=== PATIENT | female | born 1960 | race Caucasian/White ===

== ENCOUNTER 2016-12-22 08:12 | Emergency (ER) | payer OTHER ==
[~2016-12-22] VITALS: Ht 162.6 cm; Wt 86.4 kg
[2016-12-22 08:15] VITALS: TEMP 98.7
[2016-12-22] MEDS ORDERED: SYNTHROID0.125 MG/T PO (08:18)
[2016-12-22] MEDS ORDERED: ZOLOFT 50MG50 MG PO (08:18)
[2016-12-22] MEDS ORDERED: PRINIVIL5 MG (08:18)
[2016-12-22 09:01] LABS: BASO # 0.1 (0.0-0.2); BASO % 0.3 % (0.0-2.0); EOS # 0.4 (0.0-0.7); EOS % 2.3 % (0-4.0); GRAN # 12.2 (1.4-6.5); GRAN % 78.2 % (42.2-75.2); HEMOGLOBIN 13.8 g/dl (12.5-16.0); MEAN CELL VOLUME 90 fl (80.0-100.0); MEAN CORPUSCULAR HEMOGLOBIN 30 pg (27.0-31.0); MEAN CORPUSCULAR HGB CONC 34 g/dl (33.0-37.0); MEAN PLATELET VOLUME 11.6 fl (7.4-10.4); MONO # 0.9 (0.1-0.6); MONO % 5.8 % (1.7-9.3); PLATELET COUNT 229 K/mm3 (130-400); RED BLOOD COUNT 4.57 M/mm3 (4.10-5.30); REDCELL DISTRIBUTION WIDTH-CV 13.1 % (11.5-14.5); WHITE BLOOD COUNT 15.6 K/mm3 (4.8-10.8)
[2016-12-22 09:11] LABS: ADJUSTED CALCIUM 9.3 mg/dL (8.4-10.2); ALANINE AMINOTRANSFERASE 42 U/L (9-52); ALBUMIN 4.6 gm/dL (3.5-5.0); ALKALINE PHOSPHATASE 101 U/L (50-136); ANION GAP 13 mmol/L (7-16); BILIRUBIN,TOTAL 0.6 mg/dL (0.0-1.0); BLOOD UREA NITROGEN 18 mg/dL (7-17); CALCIUM 9.8 mg/dL (8.4-10.2); CARBON DIOXIDE 25 mmol/L (22-30); CHLORIDE 102 mmol/L (98-107); CREATININE, serum 0.71 mg/dL (0.52-1.25); GLUCOSE 125 mg/dL (74-106); LIPASE 85 U/L (23-300); POTASSIUM 3.9 mmol/L (3.4-5.0); SODIUM 139 mmol/L (137-145); TOTAL PROTEIN 7.7 gm/dL (6.4-8.2)
[2016-12-22 09:13] LABS: C-REACTIVE PROTEIN < 0.5 mg/dL (0.0-0.9)
[2016-12-22 10:10] VITALS: BP 160/66; PULSE 62
[2016-12-22] MEDS ORDERED: CIPRO 500MG TA500 MG PO (10:13)
[2016-12-22] MEDS ORDERED: FLAGYL500 MG PO (10:13)
== END 2016-12-22 10:33 | disposition home or self-care (01) ==
LOC: COL.ER 08:12
PROVIDERS: Emergency Medicine
DX: K52.9 Noninfective gastroenteritis and colitis, unspecified (principal); I10 Essential (primary) hypertension
CPT/HCPCS: J7030; Q9967

== ENCOUNTER → 2017-01-05 | Outpatient (CLI) | payer OTHER ==
[~2017-01-05] MED LIST: CIPRO 500MG TA500 MG PO; FLAGYL500 MG PO; PRINIVIL5 MG; SYNTHROID0.125 MG/T PO; ZOLOFT 50MG50 MG PO
== END ==
LOC: MC.RAD 07:39
DX: Z12.31 Encounter for screening mammogram for malignant neoplasm of breast (principal); N64.89 Other specified disorders of breast

== ENCOUNTER → 2018-03-26 | Outpatient (CLI) | payer OTHER | LOC: MC.RAD 02-18 07:20 | DX: Z12.31 Encounter for screening mammogram for malignant neoplasm of breast (principal) ==

== ENCOUNTER → 2019-05-08 | Outpatient (CLI) | payer OTHER | LOC: MC.RAD 07:30 | DX: Z12.31 Encounter for screening mammogram for malignant neoplasm of breast (principal) ==

== ENCOUNTER → 2020-05-10 | Outpatient (CLI) | payer OTHER | LOC: MC.RAD 10:18 | DX: Z12.31 Encounter for screening mammogram for malignant neoplasm of breast (principal) ==

== ENCOUNTER → 2021-05-18 | Outpatient (CLI) | payer OTHER | LOC: MC.RAD 09:27 | DX: Z12.31 Encounter for screening mammogram for malignant neoplasm of breast (principal) ==